=== PATIENT | male | born 1970 | race Hispanic/Latino ===

== ENCOUNTER 2018-10-17 09:13 | Emergency (ER) | payer OTHER ==
[~2018-10-17] VITALS: Ht 157.5 cm; Wt 68.2 kg
[2018-10-17 10:37] VITALS: BP 149/84
== END 2018-10-17 10:37 | disposition home or self-care (01) | DRG 728 ==
LOC: ED 09:13
DX: A63.8 Other specified predominantly sexually transmitted diseases (principal)
CPT/HCPCS: J0561; J2540